=== PATIENT | female | born 1960 | race Caucasian/White ===

== ENCOUNTER 2024-11-23 05:50 | Day surgery (SDC) | payer MEDICARE ==
[2024-11-23] MEDS: Lactated Ringers 1,000 ML IV SCH (06:37)
[2024-11-23] MEDS ORDERED: fentaNYL 50 MCG/ML SDV ONE (06:52)
[2024-11-23] MEDS ORDERED: Propofol 200 MG/20 ML SDV ONE ×2 (06:52→07:13)
== END 2024-11-23 08:39 | disposition home or self-care (01) ==
LOC: JP.SDS 05:50
PROVIDERS: ATTEND Family Medicine
DX: Z12.11 Encounter for screening for malignant neoplasm of colon (principal); K57.30 Diverticulosis of large intestine without perforation or abscess without bleeding; Z86.0101 Personal history of adenomatous and serrated colon polyps
CPT/HCPCS: G0105; J2704; J3010; J7120